=== PATIENT | male | born 1970 | race American Indian/Alaskan Native ===

== ENCOUNTER 2020-08-24 01:20 | Emergency (ER) | payer OTHER ==
--- NOTE | 2020-08-24 02:00 | XRay Report ---
Left ankle 2 views INDICATION: Left ankle pain following injury IMPRESSION: Severe swelling of the left ankle. No acute fracture is identified. Moderate early degene rative changes of the ankle joint. Remote injury of the medial malleolus. Signer Name: Herb Haji MD Signed: 08/24/2020 1:55 AM Workstation Name: [id number]
[2020-08-24 08:07] VITALS: BP 150/111
--- NOTE | 2020-08-24 08:42 | Emergency Department Report ---
ED General Adult HPI - General Chief complaint: Extremity Injury, Lower Stated complaint: BILATERAL FOOT PAIN/TWISTED ANKLE Time Seen by Provider: 08/24/20 07:50 Source: patient Mode of arrival: Ambulatory Limitations: No Limitations - History of Present Illness Initial comments: 50-year-old -[place] male patient presents with complaints of bilateral leg weakness for approximately 1 month and left ankle pain after a twist injury yesterday. Patient states due to the leg weakness, he lost his balance yesterday and twisted his ankle inward. He denies any head trauma or loss of consciousness. He rates his current pain as a 3/10 in severity and states it worsens with movement and with ambulation. Patient reports it is becoming increasingly more difficult to ambulate, however he is able to ambulate with a cane. Patient denies any loss of bladder/bowel control, saddle paresthesias, history of cancer, trauma to his back, IV drug use, steroid use, fever/chills/sweats, or unexplained weight loss. Severity scale (0 -10): 3 - Related Data Previous Rx's Medication Instructions Recorded Last Taken Type Naproxen 500 mg PO BID PRN #20 tablet 08/24/20 Unknown Rx Allergies Allergy/AdvReac Type Severity Reaction Status Date / Time No Known Allergies Allergy Unverified 08/24/20 01:23 ED Review of Systems ROS: Stated complaint: BILATERAL FOOT PAIN/TWISTED ANKLE Other details as noted in HPI Constitutional: denies: chills, diaphoresis, fever, malaise, weakness Respiratory: denies: shortness of breath Cardiovascular: denies: chest pain Gastrointestinal: denies: abdominal pain Musculoskeletal: joint swelling, arthralgia Neurological: denies: numbness, paresthesias ED Past Medical Hx - Past Medical History Previous Medical History?: Yes Additional medical history: sleep apnea - Surgical History Past Surgical History?: Yes Additional Surgical History: Left knee - Social History Smoking Status: Never Smoker Substance Use Type: None - Medications Home Medications: Home Medications Medication Instructions Recorded Confirmed Last Taken Type Naproxen 500 mg PO BID PRN #20 tablet 08/24/20 Unknown Rx ED Physical Exam - General Limitations: No Limitations General appearance: alert, in no apparent distress, obese (Morbid) - Head Head exam: Present: atraumatic, normocephalic - Eye Eye exam: Present: normal appearance. Absent: scleral icterus - Neck Neck exam: Present: normal inspection - Respiratory Respiratory exam: Present: normal lung sounds bilaterally - Cardiovascular Cardiovascular Exam: Present: regular rate, normal rhythm - GI/Abdominal GI/Abdominal exam: Present: soft. Absent: tenderness - Extremities Exam Extremities exam: Present: full ROM - Expanded Lower Extremity Exam Left Ankle exam: Present: full ROM, tenderness (Mild), swelling. Absent: ecchymosis Neuro vascular tendon exam: Present: no vascular compromise - Back Exam Back exam: Present: full ROM. Absent: paraspinal tenderness, vertebral tenderness - Expanded Back Exam Expanded Back exam: Absent: saddle anesthesia - Neurological Exam Neurological exam: Present: alert, oriented X3, other (Patient ambulates with cane) - Expanded Neurological Exam Expanded Sensory exam: Lower Extremity Light Touch: Normal Motor strength exam: RLE: 4, LLE: 4 - Psychiatric Psychiatric exam: Present: normal affect, normal mood - Skin Skin exam: Present: warm, dry, intact, normal color. Absent: rash ED Course Vital Signs 08/24/20 08/24/20 01:27 08:05 Temperature 99.0 F Pulse Rate 68 63 Respiratory 20 17 Rate Blood Pressure 179/100 Blood Pressure 150/111 [Left] O2 Sat by Pulse 90 99 Oximetry ED Medical Decision Making - Radiology Data Radiology results: report reviewed Fluoro Time In Minutes: Left ankle 2 views INDICATION: Left ankle pain following injury IMPRESSION: Severe swelling of the left ankle. No acute fracture is identified. Moderate early degenerative changes of the ankle joint. Remote injury of the medial malleolus. - Medical Decision Making 50-year-old -[place] male patient presents with complaints of bilateral leg weakness for approximately 1 month and left ankle pain after a twist injury yesterday. Patient states due to the leg weakness, he lost his balance yesterday and twisted his ankle inward. He denies any head trauma or loss of consciousness. He rates his current pain as a 3/10 in severity and states it worsens with movement and with ambulation. Patient reports it is becoming increasingly more difficult to ambulate, however he is able to ambulate with a cane. Patient denies any loss of bladder/bowel control, saddle paresthesias, history of cancer, trauma to his back, IV drug use, steroid use, fever/c hills/sweats, or unexplained weight loss. X-ray of the ankle shows swelling without acute bony abnormality. Will treat for ankle sprain. Patient is neurologically intact on exam and is [place] n egative. Discussed patient in detail with Dr. Gregg who recommends outpatient follow-up with compound specialist for further evaluation. Discussed importance of follow-up for further evaluation with patient and signs and symptoms that should prompt immediate return to the emergency department in detail, he verbalizes understanding. He is nontoxic-appearing and stable for discharge home. Critical care attestation.: If time is entered above; I have spent that time in minutes in the direct care of this critically ill patient, excluding procedure time. ED Disposition Clinical Impression: Leg weakness, bilateral, Left ankle injury, Elevated blood pressure reading in office without diagnosis of hypertension Disposition: TO HOME OR SELFCARE Is pt being admited?: No Condition: Stable Instructions: Acute Knee Pain, Adult, Weakness, Managing Your Hypertension, Hypertension, Adult Prescriptions: Naproxen 500 mg PO BID PRN #20 tablet PRN Reason: pain Referrals: PRIMARY CAREMD [Primary Care Provider] - 2-3 Days (Blood Pressure ) YARELIS SUE II, MD [Staff Physician] - 2-3 Days (leg weakness ) Forms: Work/School Release Form(ED)
== END 2020-08-24 09:20 | disposition home or self-care (01) ==
LOC: ED 01:20
DX: S99.912A Unspecified injury of left ankle, initial encounter (principal); R03.0 Elevated blood-pressure reading, without diagnosis of hypertension; R53.1 Weakness; Z98.890 Other specified postprocedural states; Z79.899 Other long term (current) drug therapy; X50.1XXA Overexertion from prolonged static or awkward postures, initial encounter; Y93.89 Activity, other specified; Y92.89 Other specified places as the place of occurrence of the external cause; Y99.8 Other external cause status